=== PATIENT | male | born 1970 | race African-American/Black ===

== ENCOUNTER 2020-10-26 14:48 | Emergency (ER) | payer BC ==
[~2020-10-26] VITALS: Ht 185.4 cm; Wt 88.5 kg
[2020-10-26] MEDS ORDERED: TYLENOL # 31 EA PO ×2 (15:04)
[2020-10-26] MEDS ORDERED: ZOFRAN4 MG SL (15:04)
== END 2020-10-26 15:29 | disposition home or self-care (01) ==
LOC: ER 15:29
DX: U07.1 COVID-19 (principal); R06.00 Dyspnea, unspecified; R05 Cough; R53.81 Other malaise; I10 Essential (primary) hypertension
CPT/HCPCS: 99283; U0002